=== PATIENT | female | born 1980 | race Caucasian/White ===

== ENCOUNTER 2024-02-21 15:40 | Emergency (ER) | payer SELFPAY ==
[2024-02-21] MEDS ORDERED: ALBUTEROL 2.5 MG/3 ML NEB SOL ONE (16:10)
[2024-02-21] MEDS ORDERED: METOCLOPRAMIDE 10 MG/2mL INJ ONE (16:11)
[2024-02-21] MEDS ORDERED: NA CHLORIDE 0.9% 100 ML ONE (16:11)
[2024-02-21] MEDS ORDERED: IPRATROPIUM BROM 0.5MG/2.5ML ONE (16:11)
[2024-02-21] MEDS ORDERED: DIPHENHYDRAMINE 50 MG/ML VIAL ONE (16:11)
[2024-02-21 16:35] LABS: Absolute Eosinophils 0.2 K/uL (0-0.5); Absolute Lymphocytes (CBC) 2.2 K/uL (0.7-4.9); Absolute Monocytes 0.8 K/uL (0.1-1.3); Basophils % 0.5 % (0-1.3); Eosinophils % 1.8 % (0-4.4); Hemoglobin 12.1 g/dL (12.0-15.0); Lymphocytes % 21.4 % (15.3-44.8); MCHC 32.8 g/dL (32.0-36.0); MCV 88.5 fL (80-100); MPV 9.1 fL (7.6-11.3); Neutrophils % 68.3 % (41.7-73.7); Platelets 224 thou/uL (152-406); RBC Red Blood Cell Count 4.18 M/uL (3.86-4.86); Red Cell Distribution Width 13.5 % (12.1-15.2)
[2024-02-21] MEDS ORDERED: METHYLPREDNISOLONE 125 MG INJ ONE (16:35)
--- NOTE | 2024-02-21 16:56 | RAD REPORT ---
EXAMINATION: ONE VIEW CHEST XR CLINICAL INDICATION: COUGH TECHNIQUE: Frontal chest projection is submitted. Examination is limited by patient positioning and t echnique. COMPARISON: No prior exam. FINDINGS: The lungs are well inflated and clear. The heart is normal in size. No displaced fractures identified . IMPRESSION: No acute intrathoracic abnormalities.
[2024-02-21 17:15] LABS: SARS-CoV-2 Antigen CONTROL BLUE LINE VIS/BG OK; SARS-CoV-2 Antigen Rapid Res Negative (Negative)
--- NOTE | 2024-02-21 17:19 | ER ---
Nurse's Notes [facility] Name: Jennifer Rodgers Age: 43 yrs Sex: Female : 1980 Arrival Date: 02/21/2024 Time: 15:40 Bed 15 Private MD: Diagnosis: Mild persistent asthma with (acute) exacerbation Presentation: 02/20 15:57 Chief complaint: Patient states: Left sided chest pain that is worse with coughing, cm10 shortness of breath, and headache onset 2 days ago. Coronavirus screen: Client denies travel out of the [place] in the last 14 days. Ebola Screen: Patient denies travel to an Ebola-affected area in the 21 days before illness onset. No symptoms or risks identified at this time. Initial Sepsis Screen: Does the patient meet any 2 criteria? HR > 90 bpm. Does the patient have a suspected source of infection? No. Patient's initial sepsis screen is negative. Risk Assessment: Do you want to hurt yourself or someone else? Patient reports no desire to harm self or others. Onset of symptoms was February 21, 2024. 15:57 Method Of Arrival: Wheelchair cm10 15:57 Acuity: ADILSON 2 cm10 Triage Assessment: 15:58 General: Appears in no apparent distress. uncomfortable, Behavior is cooperative. cm10 Neuro: No deficits noted. Level of Consciousness is awake, alert, obeys commands, Oriented to person, place, time, situation, Appropriate for age. 16:33 Respiratory: the patient has moderate shortness of breath. ph Historical: - Allergies: 15:58 No Known Allergies; cm10 - PMHx: 15:58 Asthma; cm10 - Immunization history:: Adult Immunizations up to date. - Infectious Disease History:: Denies. - Social history:: Smoking status: Patient reports the use of cigarette tobacco products, smokes one pack cigarettes per day. Screenin:32 [facility] ED Fall Risk Assessment (Adult) History of falling in the last 3 months, ph including since admission No falls in past 3 months (0 pts) Confusion or Disorientation No (0 pts) Intoxicated or Sedated No (0 pts) Impaired Gait No (0 pts) Mobility Assist Device Used No (0 pt) Altered Elimination No (0 pt) Score/Fall Risk Level 0 - 2 = Low Risk Oriented to surroundings, Maintained a safe environment, Hourly rounding (assess needs \T\ fall precautionary measures) done, Used ambulatory aids as needed (educated on \T\ assisted with). Abuse screen: Denies threats or abuse. Denies injuries from another. Nutritional screening: No deficits noted. Tuberculosis screening: No symptoms or risk factors identified. Assessment: 16:31 General: Appears in no apparent distress. uncomfortable, Behavior is calm, cooperative, ph appropriate for age. Pain: Complains of pain in head. Neuro: Level of Consciousness is awake, alert, obeys commands, Oriented to person, place, Reports headache since yesterday. Cardiovascular: Reports shortness of breath, Capillary refill < 3 seconds in bilateral fingers Patient's skin is warm and dry. Rhythm is sinus rhythm. Respiratory: Reports shortness of breath at rest cough that is Airway is patent Respiratory effort is even, unlabored, Respiratory pattern is regular, symmetrical. GI: No signs and/or symptoms were reported involving the gastrointestinal system. Derm: Skin is pink, warm \T\ dry. 17:37 Reassessment: Patient appears in no apparent distress at this time. Patient and/or ph family updated on plan of care and expected duration. Pain level reassessed. Patient is alert, oriented x 3, equal unlabored respirations, skin warm/dry/pink. Vital Signs: 15:57 BP 159 / 104; Pulse 94; Resp 18; Temp 98.3(O); Pulse Ox 99% on R/A; Weight 72.57 kg; cm10 Height 5 ft. 3 in. ; Pain 6/10; 16:33 BP 141 / 93; Pulse 95; Resp 20; Pulse Ox 99% on Nebulizer Mask; ph 17:37 BP 142 / 84; Pulse 89; Resp 18; Temp 97.5; Pulse Ox 98% on R/A; ph 15:57 Body Mass Index 28.34 (72.57 kg, 160.02 cm) cm10 15:57 Pain Scale: Adult cm10 ED Course: 15:42 Patient arrived in ED. ra3 15:42 Drake Harper MD is Attending Physician. ec2 15:47 Karen Mckeon, SHANTANU is Primary Nurse. ph 15:47 Arm band placed on Patient placed in an exam room, on a stretcher, on pulse oximetry. ph 15:58 Triage completed. cm10 15:58 Client placed on continuous cardiac and pulse oximetry monitoring. NIBP monitoring cm10 applied. ekg monitor tech on. 15:58 EKG done, by ED staff, reviewed by Drake Harper MD. cm10 16:31 SARS RAPID Sent. ph 16:31 Influenza Screen (a \T\ B) Sent. ph 16:31 BMP Sent. ph 16:31 CBC with Diff Sent. ph 16:31 Initial lab(s) drawn, by me, sent to lab. COVID swab sent to lab. Flu and/or RSV swab ph sent to lab. Inserted saline lock: 20 gauge in right antecubital area, using aseptic technique. Blood collected. Flushed with 10 mL NS. 16:33 Patient has correct armband on for positive identification. Bed in low position. Call ph light in reach. Side rails up X 1. Door closed. Noise minimized. Warm blanket given. Pillow given. 16:38 CXR XRAY In Process Unspecified. EDMS 17:37 No provider procedures requiring assistance completed. IV discontinued, intact, ph bleeding controlled, No redness/swelling at site. Pressure dressing applied. Administered Medications: 16:30 Drug: diphenhydrAMINE IVP 25 mg IVP once Route: IVP; Site: right antecubital; ph 17:38 Follow up: Response: No adverse reaction ph 16:31 Drug: DuoNeb Nebulize (3:1) (2.5 mg - 0.5 mg) 3 ml Nebulizer once Route: Nebulizer; ph 17:38 Follow up: Response: No adverse reaction ph 16:31 Drug: metoCLOPramide IVP 10 mg IVP once; over 1 to 2 minutes Route: IVP; Site: right ph antecubital; 17:38 Follow up: Response: No adverse reaction ph 16:43 Drug: MethylPrednisoLONE IVP 125 mg IVP once Route: IVP; Site: right antecubital; ph 17:38 Follow up: Response: No adverse reaction ph Medication: 16:33 VIS not applicable for this client. ph Outcome: 17:18 Discharge ordered by . ec2 17:37 Discharged to home ambulatory, ph 17:37 Condition: good 17:37 Discharge instructions given to patient, Instructed on discharge instructions, follow up and referral plans. medication usage, Demonstrated understanding of instructions, follow-up care, medications, Prescriptions given X 3, 17:38 Patient left the ED. ph Signatures: Dispatcher [employer] Karen Galloway RN RN ph Doris Carroll RN RN cm10 Drake Harper MD MD 2 Linda Angulo 3
--- NOTE | 2024-02-21 17:19 | EDPHYS ---
Physician Documentation [facility] Name: Jennifer Rodgers Age: 43 yrs Sex: Female : 1980 Arrival Date: 02/21/2024 Time: 15:40 Bed 15 Private MD: ED Physician Drake Harper HPI: 02/20 16:00 This 43 yrs old Female presents to ER via Wheelchair with complaints of ec2 Breathing Difficulty - x2days, Headache. 16:00 Patient arrives today for several days of cough and cold symptoms with shortness of ec2 breath. Patient reports history of asthma, is a pack per day smoker. Patient reports decreased p.o. intake as well as body aches and headache.. Historical: - Allergies: 15:58 No Known Allergies; cm10 - PMHx: 15:58 Asthma; cm10 - Immunization history:: Adult Immunizations up to date. - Infectious Disease History:: Denies. - Social history:: Smoking status: Patient reports the use of cigarette tobacco products, smokes one pack cigarettes per day. ROS: 17:19 Constitutional: as per hpi ec2 Exam: 16:01 Constitutional: GEN: NAD Head: atraumatic Eyes: EOMI Ears: External ears are ec2 normal. CV: regular rate LUNGS: no respiratory distress, scattered wheezes noted. ABD: non-distended SKIN: no evidence of rashes MSK: no evidence of trauma Vital Signs: 15:57 BP 159 / 104; Pulse 94; Resp 18; Temp 98.3(O); Pulse Ox 99% on R/A; Weight 72.57 kg; cm10 Height 5 ft. 3 in. ; Pain 6/10; 16:33 BP 141 / 93; Pulse 95; Resp 20; Pulse Ox 99% on Nebulizer Mask; ph 17:37 BP 142 / 84; Pulse 89; Resp 18; Temp 97.5; Pulse Ox 98% on R/A; ph 15:57 Body Mass Index 28.34 (72.57 kg, 160.02 cm) cm10 15:57 Pain Scale: Adult cm10 MDM: 15:47 Medical Screening Exam initiated ec2 16:01 Data reviewed: vital signs, nurses notes. ED course: Patient arrives today for ec2 shortness of breath. Examination shows wheezing. Will obtain lab work, chest x-ray and EKG. . 16:01 ED course: EKG independently reviewed and interpreted by me, shows sinus tachycardia, ec2 rate 108, no acute ST segment elevations, intervals are nonactionable.. 16:38 ED course: On reassessment patient reports improvement in her respiratory status.. ec2 17:18 ED course: Lab work is unrevealing. Will discharge home have the patient follow-up PCP. ec2 Return precautions given. Presentation consistent with asthma exacerbation.. 02/20 16:00 Order name: CBC with Diff; Complete Time: 16:59 ec2 02/20 16:00 Order name: BMP; Complete Time: 16:54 ec2 02/20 16:00 Order name: Influenza Screen (a \T\ B); Complete Time: 17:17 ec2 02/20 16:00 Order name: SARS RAPID; Complete Time: 17:17 ec2 02/20 16:00 Order name: CXR XRAY; Complete Time: 16:59 ec2 02/20 16:00 Order name: EKG - Nurse/Tech; Complete Time: 16:30 ec2 Administered Medications: 16:30 Drug: diphenhydrAMINE IVP 25 mg IVP once Route: IVP; Site: right antecubital; ph 17:38 Follow up: Response: No adverse reaction ph 16:31 Drug: DuoNeb Nebulize (3:1) (2.5 mg - 0.5 mg) 3 ml Nebulizer once Route: Nebulizer; ph 17:38 Follow up: Response: No adverse reaction ph 16:31 Drug: metoCLOPramide IVP 10 mg IVP once; over 1 to 2 minutes Route: IVP; Site: right ph antecubital; 17:38 Follow up: Response: No adverse reaction ph 16:43 Drug: MethylPrednisoLONE IVP 125 mg IVP once Route: IVP; Site: right antecubital; ph 17:38 Follow up: Response: No adverse reaction ph Disposition Summary: 02/21/24 17:18 Discharge Ordered Notes: Location: Home ec2 Condition: Stable ec2 Diagnosis - Mild persistent asthma with (acute) exacerbation ec2 Followup: ec2 - With: Private Physician - When: - Reason: Re-evaluation by your physician Discharge Instructions: - Discharge Summary Sheet ec2 - Asthma, Adult ec2 Forms: - Work release form ph - Medication Reconciliation Form ec2 - Antibiotic Education ec2 - Prescription Opioid Use ec2 - Patient Portal Instructions ec2 - Leadership Thank You Letter ec2 Prescriptions: - albuterol sulfate 90 mcg/actuation Inhalation HFA Aerosol Inhaler - inhale 2 puff INHALATION route every 4 hours as needed for bronchospasm; ec2 administer via ventilator; 1 unit; Refills: 0, Product Selection Permitted - Zithromax Z-Vicente 250 mg Oral Tablet - take 1 tablet ORAL route as directed for 5 days Day 1 - take two (2) tablets ec2 one time. Day 2, 3, 4 , 5 take one (1) tablet once daily.; 6 tablet; Refills: 0, Product Selection Permitted - Prednisone 20 mg Oral Tablet - take 2 tablets ORAL route once daily for 5 days; 10 tablet; Refills: 0, Product ec2 Selection Permitted Signatures: Dispatcher [employer] Karen Galloway RN RN ph Doris Carroll RN RN cm10 Drake Harper MD MD ec2 Corrections: (The following items were deleted from the chart) 17:18 17:18 ED course: Wood is a patient is well-appearing no acute distress. Lab work is ec2 unrevealing. Will discharge home have the patient follow-up PCP. Return precautions given. Presentation consistent with asthma exacerbation.. ec2
[2024-02-21 19:58] VITALS: BP 142/84; TEMP 97.5; O2SAT 98
--- NOTE | 2024-02-24 11:41 | EKG ---
Test Date: 2024-02-21 Test Time: 15:53:31 Special Education Assistant: PRASHANTH MEASUREMENT RESULTS: Intervals: Rate: 108 SD: 120 QRSD: 80 QT: 320 QTc: 428 [place]: P: 62 SD: 120 QRS: 34 T: 73 INTERPRETIVE STATEMENTS: Sinus tachycardia Otherwise normal ECG No previous ECG available for comparison Electronically Signed On 02-24-24 11:35:11 EARRING MAKER by Saad Henry
== END 2024-02-21 17:38 | disposition home or self-care (01) ==
LOC: ER 15:40
DX: J45.31 Mild persistent asthma with (acute) exacerbation (principal); Z11.52 Encounter for screening for COVID-19
CPT/HCPCS: 36415; 71045; 80048; 85025; 87804; 87811; 93005; 96374; 96375; 99285; J1200; J2765; J2919; J7613; J7644